=== PATIENT | male | born 1940 | race Hispanic/Latino ===

== ENCOUNTER 2021-12-04 09:59 | Outpatient (CLI) | payer MEDICARE, MEDICAID ==
[~2021-12-04 09:59] MED LIST: Gadobenate Dimeglumine 529 MG/1 ML (20ML VIAL) ONE
== END 2021-12-04 10:00 | disposition home or self-care (01) ==
LOC: CSHMRI 09:59
PROVIDERS: ATTEND Internal Medicine Medical Oncology
DX: C34.90 Malignant neoplasm of unspecified part of unspecified bronchus or lung (principal); C79.9 Secondary malignant neoplasm of unspecified site; I67.82 Cerebral ischemia; Z86.73 Personal history of transient ischemic attack (TIA), and cerebral infarction without residual deficits
CPT/HCPCS: 70553; A9577